=== PATIENT | male | born 1985 | race Caucasian/White ===

== ENCOUNTER 2016-12-26 22:01 | Emergency (ER) | payer OTHER ==
[~2016-12-26] VITALS: Ht 170.2 cm; Wt 94.1 kg
[~2016-12-26 22:01] MED LIST: BACTRIM,SEPT1 TABLET PO; BENADRYL ALLERG25 MG PO; BENTYL10 MG PO; DOXYCYCLINE HY100 M3 PO; FLEXERIL10 MG PO; INDOCIN; MOTRIN600 MG PO; MOTRIN800 MG PO; NAPROSYN500 MG PO; NOHOMEMEDS; NORVASC5 MG PO; PERCOCET 5-3251 EACH PO; PERCOCET 5/31 TABLET PO; PERCOCET 7.51 TABLET PO; ULTRACET1 TABLET PO; ULTRAM50 MG PO; VICODIN 5-3001 EACH PO; VICODIN 5-5001 EACH PO; ZITHROMAX Z-PA250 MG PO; ZOFRAN ODT4 MG PO
[2016-12-26 23:00] VITALS: BP 134/74
== END 2016-12-26 23:07 | disposition home or self-care (01) ==
LOC: EME 22:01
DX: K40.90 Unilateral inguinal hernia, without obstruction or gangrene, not specified as recurrent (principal); F17.200 Nicotine dependence, unspecified, uncomplicated; Z88.0 Allergy status to penicillin
CPT/HCPCS: 99281; 99283

== ENCOUNTER 2017-01-21 14:48 | Emergency (ER) | payer OTHER ==
[~2017-01-21] VITALS: Ht 172.7 cm; Wt 95.1 kg
[2017-01-21 15:18] VITALS: BP 140/82
== END 2017-01-21 16:16 | disposition left against medical advice (07) ==
LOC: EME 14:48
DX: N44.2 Benign cyst of testis (principal); Z53.21 Procedure and treatment not carried out due to patient leaving prior to being seen by health care provider

== ENCOUNTER 2017-02-21 07:26 | Day surgery (SDC) | payer OTHER ==
[~2017-02-21] VITALS: Ht 172.7 cm; Wt 95.3 kg
[2017-02-21 07:50] VITALS: BP 128/75
[2017-02-21] MEDS ORDERED: PERCOCET 5/31 TABLET PO (12:38)
[2017-02-21] MEDS ORDERED: COLACE100 MG PO (12:38)
[2017-02-21 13:30] VITALS: BP 116/59
[2017-02-21 14:00] VITALS: BP 115/84
== END 2017-02-21 14:18 | disposition home or self-care (01) ==
LOC: SDC
PROC: 0YU54JZ Supplement Right Inguinal Region with Synthetic Substitute, Percutaneous Endoscopic Approach (ICD-10-PCS; principal; 2017-02-21)
DX: K40.90 Unilateral inguinal hernia, without obstruction or gangrene, not specified as recurrent (principal); K42.9 Umbilical hernia without obstruction or gangrene; I10 Essential (primary) hypertension; J45.909 Unspecified asthma, uncomplicated; F17.210 Nicotine dependence, cigarettes, uncomplicated; Z88.0 Allergy status to penicillin
CPT/HCPCS: C1727; C1781; J0131; J0330; J1100; J1170; J2250; J2405; J2710; J3010

== ENCOUNTER 2017-03-15 21:31 | Emergency (ER) | payer OTHER ==
[~2017-03-15] VITALS: Ht 165.1 cm; Wt 100.0 kg
[~2017-03-15 21:31] MED LIST changes: +COLACE100 MG PO
[2017-03-15 23:12] LABS: HEMATOCRIT 40.6 % (38.0-50.0); MCH 31.2 PG (29.0-34.0); MCV 91.9 FL (86-99); MEAN PLAT.VOLUME 10.2 uM^3 (9.0-12.4); PLATELET COUNT 230 K/uL (156-360); RBC DIS.WIDTH-CV 13.1 % (11.8-14.6); RBC DIS.WIDTH-SD 44.2 % (39-53); RED BLOOD COUNT 4.42 M/uL (4.00-5.50)
[2017-03-15 23:17] LABS: CHLORIDE 109 mEq/L (99-109); POTASSIUM 3.7 mEq/L (3.7-5.4); SODIUM 139 mEq/L (136-147)
[2017-03-15 23:19] LABS: GLUCOSE 120 mg/dL (70-99)
[2017-03-15 23:20] LABS: ANION GAP 8 MEQ/L (2-14)
[2017-03-15 23:21] LABS: TOTAL BILIRUBIN 0.2 mg/dL (0.0-1.0)
[2017-03-15 23:23] LABS: ALKALINE PHOSPHATASE 68 IU/L (3-129); GFR ESTIMATE (CALCULATED) > 59 mL/min/
[2017-03-15 23:24] LABS: UREA NITROGEN (BUN) 11 mg/dL (9-23)
[2017-03-16] MEDS ORDERED: PHENERGAN25 MG PR (02:34)
[2017-03-16] MEDS ORDERED: ZOFRAN4 MG PO (02:34)
[2017-03-16] MEDS ORDERED: PERCOCET 5/31 TABLET PO (02:34)
[2017-03-16 02:50] VITALS: BP 110/76
== END 2017-03-16 02:54 | disposition home or self-care (01) ==
LOC: EME 21:31
PROVIDERS: Nurse Practitioner Family
DX: N50.82 Scrotal pain (principal); G89.18 Other acute postprocedural pain; R10.31 Right lower quadrant pain; R11.2 Nausea with vomiting, unspecified; Z98.890 Other specified postprocedural states; F17.200 Nicotine dependence, unspecified, uncomplicated
CPT/HCPCS: 74177; 76870; 80053; 85027; 99281; 99285; J2405; J3010

== ENCOUNTER 2017-05-26 23:23 | Emergency (ER) | payer OTHER ==
[~2017-05-26] VITALS: Ht 172.7 cm; Wt 97.6 kg
[~2017-05-26 23:23] MED LIST changes: +PHENERGAN25 MG PR; +ZOFRAN4 MG PO
[2017-05-27 00:50] LABS: ADD MIUA? YES; BILIRUBIN NEGATIVE; BLOOD SMALL; COLOR YELLOW ((YELLOW)); GLUCOSE (STRIP) NEGATIVE; KETONES NEGATIVE; LEUKOCYTES NEGATIVE; NITRITE NEGATIVE; PROTEIN (STRIP) NEGATIVE; SPECIFIC GRAVITY 1.024 (1.000-1.030); UROBILINOGEN 0.2 MG/DL (0.2-1.0)
[2017-05-27 01:08] LABS: BACTERIA NONE SEEN /HPF; EPITHELIAL CELLS RARE /HPF; MUCUS TRACE /LPF; UCUL ADDED? NO; WHITE BLOOD CELLS 0-5 /HPF (0-5)
[2017-05-27] MEDS ORDERED: MOTRIN600 MG PO (01:15)
[2017-05-27] MEDS ORDERED: PERCOCET 5/31 TABLET PO (01:15)
[2017-05-27 01:21] VITALS: BP 136/92
== END 2017-05-27 01:25 | disposition home or self-care (01) ==
LOC: EME 23:23
PROVIDERS: Physician Assistant
DX: G89.18 Other acute postprocedural pain (principal); R10.31 Right lower quadrant pain; Z98.890 Other specified postprocedural states; J45.909 Unspecified asthma, uncomplicated; I10 Essential (primary) hypertension; F17.200 Nicotine dependence, unspecified, uncomplicated; Z88.0 Allergy status to penicillin; Z88.8 Allergy status to other drugs, medicaments and biological substances
CPT/HCPCS: 74176; 81003; 99281; 99284

== ENCOUNTER 2017-06-16 11:07 | Emergency (ER) | payer OTHER ==
[~2017-06-16] VITALS: Ht 172.7 cm; Wt 101.2 kg
[2017-06-16 12:11] LABS: HEMATOCRIT 46.6 % (38.0-50.0); MCH 31.3 PG (29.0-34.0); MCHC 34.5 G/DL (30.0-36.0); MCV 90.7 FL (86-99); MEAN PLAT.VOLUME 9.7 uM^3 (9.0-12.4); PLATELET COUNT 220 K/uL (156-360); RBC DIS.WIDTH-CV 13.1 % (11.8-14.6); RBC DIS.WIDTH-SD 43.7 % (39-53); RED BLOOD COUNT 5.14 M/uL (4.00-5.50); WHITE BLOOD COUNT 9.9 K/uL (4.1-10.2)
[2017-06-16 12:21] LABS: CHLORIDE 108 mEq/L (99-109); SODIUM 138 mEq/L (136-147)
[2017-06-16 12:24] LABS: GLUCOSE 94 mg/dL (70-99)
[2017-06-16 12:25] LABS: ANION GAP 8 MEQ/L (2-14)
[2017-06-16 12:26] LABS: TOTAL BILIRUBIN 0.3 mg/dL (0.0-1.0)
[2017-06-16 12:27] LABS: ALKALINE PHOSPHATASE 71 IU/L (3-129); GFR ESTIMATE (CALCULATED) > 59 mL/min/
[2017-06-16 12:28] LABS: UREA NITROGEN (BUN) 9 mg/dL (9-23)
[2017-06-16 12:57] LABS: ADD MIUA? NO; BILIRUBIN NEGATIVE; BLOOD NEGATIVE; COLOR YELLOW ((YELLOW)); GLUCOSE (STRIP) NEGATIVE; KETONES NEGATIVE; LEUKOCYTES NEGATIVE; NITRITE NEGATIVE; PROTEIN (STRIP) NEGATIVE; SPECIFIC GRAVITY 1.015 (1.000-1.030); UCUL ADDED? NO; UROBILINOGEN 0.2 MG/DL (0.2-1.0)
[2017-06-16] MEDS ORDERED: MOTRIN600 MG PO (14:43)
[2017-06-16 14:53] VITALS: BP 160/87
== END 2017-06-16 14:54 | disposition home or self-care (01) ==
LOC: EME 11:07
DX: R10.31 Right lower quadrant pain (principal); G89.29 Other chronic pain; J45.909 Unspecified asthma, uncomplicated; I10 Essential (primary) hypertension; F17.200 Nicotine dependence, unspecified, uncomplicated; Z88.0 Allergy status to penicillin; Z88.5 Allergy status to narcotic agent
CPT/HCPCS: 74177; 80053; 81003; 85027; 99281; 99284; J1885

== ENCOUNTER 2017-07-15 08:20 | Emergency (ER) | payer OTHER ==
[~2017-07-15] VITALS: Ht 172.7 cm; Wt 99.1 kg
[2017-07-15] MEDS ORDERED: DOXYCYCLINE MO100 MG PO (11:35)
[2017-07-15] MEDS ORDERED: PERCOCET 5/31 TABLET PO (11:35)
[2017-07-15 11:57] VITALS: BP 120/84
== END 2017-07-15 11:57 | disposition home or self-care (01) ==
LOC: EME 08:20
DX: N50.811 Right testicular pain (principal); N44.2 Benign cyst of testis; J45.909 Unspecified asthma, uncomplicated; F17.200 Nicotine dependence, unspecified, uncomplicated; Z88.0 Allergy status to penicillin; Z88.8 Allergy status to other drugs, medicaments and biological substances
CPT/HCPCS: 76870

== ENCOUNTER 2017-10-28 09:59 | Emergency (ER) | payer OTHER ==
[~2017-10-28] VITALS: Ht 172.7 cm; Wt 97.7 kg
[~2017-10-28 09:59] MED LIST changes: +DOXYCYCLINE MO100 MG PO
[2017-10-28 11:35] LABS: HEMATOCRIT 43.7 % (38.0-50.0); HEMOGLOBIN 15.8 G/DL (12.5-16.6); MCH 32.4 PG (29.0-34.0); MCHC 36.2 G/DL (30.0-36.0); MCV 89.7 FL (86-99); PLATELET COUNT 269 K/uL (156-360); RBC DIS.WIDTH-CV 12.8 % (11.8-14.6); RBC DIS.WIDTH-SD 42.5 % (39-53); RED BLOOD COUNT 4.87 M/uL (4.00-5.50); WHITE BLOOD COUNT 11.4 K/uL (4.1-10.2)
[2017-10-28 11:44] LABS: CHLORIDE 110 mEq/L (99-109); POTASSIUM 4.2 mEq/L (3.7-5.4); SODIUM 141 mEq/L (136-147)
[2017-10-28 11:45] LABS: GLUCOSE 99 mg/dL (70-99)
[2017-10-28 11:49] LABS: CREATININE 1.1 mg/dL (0.6-1.3); GFR ESTIMATE (CALCULATED) > 59 mL/min/ (58.99-99999)
[2017-10-28 11:50] LABS: UREA NITROGEN (BUN) 8 mg/dL (9-23)
[2017-10-28 13:20] LABS: APPEARANCE CLEAR ((CLEAR)); BILIRUBIN NEGATIVE; BLOOD NEGATIVE; COLOR STRAW ((YELLOW)); GLUCOSE (STRIP) NEGATIVE; KETONES NEGATIVE; LEUKOCYTES NEGATIVE; NITRITE NEGATIVE; PROTEIN (STRIP) NEGATIVE; SPECIFIC GRAVITY 1.025 (1.000-1.030); UCUL ADDED? NO; UROBILINOGEN 0.2 MG/DL (0.2-1.0)
[2017-10-28] MEDS ORDERED: MOTRIN800 MG PO (13:53)
[2017-10-28 14:07] VITALS: BP 138/89
== END 2017-10-28 14:22 | disposition home or self-care (01) ==
LOC: EME 09:59
PROVIDERS: Nurse Practitioner Family
DX: N50.811 Right testicular pain (principal); N50.3 Cyst of epididymis; J45.909 Unspecified asthma, uncomplicated; F17.200 Nicotine dependence, unspecified, uncomplicated; Z88.0 Allergy status to penicillin; Z88.6 Allergy status to analgesic agent
CPT/HCPCS: 74177; 76870; 80048; 81003; 85027; 99281; 99285; J1885; J7030

== ENCOUNTER 2018-02-25 08:10 | Emergency (ER) | payer OTHER ==
[~2018-02-25] VITALS: Ht 172.7 cm; Wt 96.4 kg
[2018-02-25 09:26] LABS: APPEARANCE CLEAR ((CLEAR)); BILIRUBIN NEGATIVE; BLOOD NEGATIVE; COLOR YELLOW ((YELLOW)); GLUCOSE (STRIP) NEGATIVE; KETONES NEGATIVE; LEUKOCYTES NEGATIVE; NITRITE NEGATIVE; PROTEIN (STRIP) NEGATIVE; SPECIFIC GRAVITY 1.015 (1.000-1.030); UROBILINOGEN 0.2 MG/DL (0.2-1.0)
[2018-02-25] MEDS ORDERED: PERCOCET 5/31 TABLET PO (12:52)
[2018-02-25 13:05] VITALS: BP 154/87
== END 2018-02-25 13:05 | disposition home or self-care (01) ==
LOC: EME 08:10
PROVIDERS: Physician Assistant
DX: R10.32 Left lower quadrant pain (principal); N44.2 Benign cyst of testis; F17.200 Nicotine dependence, unspecified, uncomplicated; J45.909 Unspecified asthma, uncomplicated; Z88.5 Allergy status to narcotic agent; Z88.0 Allergy status to penicillin
CPT/HCPCS: 76870; 81003; 99281; 99284